=== PATIENT | male | born 1970 | race Caucasian/White ===

== ENCOUNTER → 2018-07-03 | Day surgery (SDC) | payer BC ==
--- NOTE | 2018-07-02 12:05 | Diagnostic Imaging Report ---
EXAMINATION: PA and lateral views of the chest. COMPARISON: None CLINICAL HISTORY: Preoperative exam for carpal tunnel surgery DISCUSSION: Lines/tubes: None. Lungs: The lungs are well inflated and clear. There is no evidence of pneumonia or pulmonary edema. Pleura: There is no pleural effusion or pneumothorax. Heart and mediastinum: The cardiomediastinal silhouette is normal. Bones and soft tissues: No acute bony abnormalities. IMPRESSION: No acute cardiopulmonary abnormalities. Signed by: Dr. Brayden Her M.D. on 07/02/2018 12:02 PM
[~2018-07-03] MED LIST: BUPIVACAINE HCL 0.5% INJ 30 ML VIAL INJ ONE; CEFAZOLIN SOD 1 GM/NS 50ML 50 ML IV ONE; FENTANYL CITRATE/PF 100MCG/2 ML INJ ONE; LIDOCAINE HCL 2% LOCAL INJ 5 ML SDV VIAL INJ ONE; MIDAZOLAM HCL 2 MG/2 ML VIAL ONE; ONDANSETRON HCL INJ 2MG/ML 2ML 2 MG/ML VIAL ONE; PROPOFOL IV EMULSION 10 MG/ML 20 ML VIAL ONE
--- OUTSIDE RECORDS SUMMARY | 2018-07-03 07:51 | XMS REPORT ---
Author [facility] Address Unknown Phone Unavailable Care Team Providers Care Special Education Math Teacher Name Role Phone CARLITOS BOWEN Unavailable Unavailable Problems This patient has no known problems. Allergies, Adverse Reactions, Alerts This patient has no known allergies or adverse reactions. Medications This patient has no known medications. Results Test Description Test Time Test Comments Text Results Atomic Results Result Comments CHEST 2 VIEWS 2018-07-02 12:01:00 [place] [address] Patient Name: ADRIANA LEWIS MR #: [id number] : 1970 Age/Sex: 47/M Req #: [id number] Adm Physician: Ordered by: CARLITOS BOWEN MD Report #: [id number] Location: OR Room/Bed: Procedure: [id number] DX/CHEST 2 VIEWS Exam Date: 07/02/18 Exam Time: 1100 REPORT STATUS: Signed EXAMINATION: PA and lateral views of the chest. COMPAR MELIDA: None CLINICAL HISTORY: Preoperative exam for carpal tunnel surgery DISCUSSION: Lines/tubes: None. Lungs: The lungs are well inflated and clear. There is no evidence of pneumonia or pulmonary edema. Pleura: There is no pleural effusion or pneumothorax. Heart and mediastinum: The cardiomediastinal silhouette is normal. Bones and soft tissues: No acute bony abnormalities. IMPRESSION: No acute cardiopulmonary abnormalities. Signed by: Dr. Carlitos Casarez M.D. on 07/02/2018 12:02 PM Dictated By: CARLITOS CASAREZ MD 01 Transcribed By: SCOTTIE on 07/02/181201 COPY TO: CARLITOS BOWEN MD
[2018-07-03 11:20] VITALS: BP 130/83
--- NOTE | 2018-07-03 15:58 | Operative Report ---
DATE OF PROCEDURE: 07/03/2018 SURGEON: Brayden Coy MD RADIATION PROTECTION TECHNICIAN: Garrick Valdovinos, certified PA. PREOPERATIVE DIAGNOSIS: Bilateral carpal tunnel syndrome. POSTOPERATIVE DIAGNOSIS: Bilateral carpal tunnel syndrome. PROCEDURE: Bilateral endoscopic carpal tunnel release. INDICATIONS: The patient is a 47-year-old gentleman, who has clinic signs and symptoms consistent with bilateral carpal tunnel syndrome. He has failed conservative management and would like to proceed with surgical release. The risks and benefits of an endoscopic versus open carpal tunnel release have been explained. He states he understands and wishes to proceed. PROCEDURE IN DETAIL: The patient was brought to the operating room and given a general anesthetic. Precautions for malignant hyperthermia were taken. Both upper extremities were prepped and draped in a sterile manner. Initial attention was directed towards the right arm. A preoperative time-out was performed. The extremity was exsanguinated and a proximal tourniquet was briefly inflated to 250 mmHg. A transverse incision was made over the flexion crease of the right wrist. The flexor retinaculum was elevated and incised. The proximal retinaculum was incised under direct visualization. An elevator was then used to tease the tenosynovium off the undersurface of the transverse carpal ligament. Dilators were placed and the hook of the hamate was palpated. The MicroAire endoscope was then placed into the carpal tunnel. The undersurface of the transverse carpal ligament was cleanly visualized without evidence of soft tissue interposition. The knife was deployed and the ligament was cut from distal to proximal. A full-thickness cut was noted with palmar fat extruding into the visibility of the scope. The incision was closed with two interrupted nylon stitches. A sterile bandage was applied and the tourniquet was deflated. The same procedure was then performed on the left arm. He was transferred to the recovery room in stable condition. There was no blood loss and all needle and sponge counts were correct. Brayden Coy MD DR/JENNIFER /[id number]
== END | disposition home or self-care (01) ==
LOC: OR 07:45
PROVIDERS: ATTEND Specialist
DX: G56.03 Carpal tunnel syndrome, bilateral upper limbs (principal); Z01.810 Encounter for preprocedural cardiovascular examination; Z01.811 Encounter for preprocedural respiratory examination
CPT/HCPCS: 29848; 71046; 93005; J0690; J2001; J2250; J2405; J2704

== ENCOUNTER → 2019-02-11 | Day surgery (SDC) | payer BC ==
[~2019-02-11] MED LIST changes: +BUPIVACAINE 0.25%/EPI 30ML SDV INJ ONE; -BUPIVACAINE HCL 0.5% INJ 30 ML VIAL INJ ONE; -CEFAZOLIN SOD 1 GM/NS 50ML 50 ML IV ONE; +GLYCOPYRROLATE INJ 1MG/ 5 ML SYR ONE; +HYDROCODONE/APAP 7.5MG-325MG 1 EA TAB ONE; +KETAMINE HCL INJ 50 MG/ML 10 ML VIAL ONE; +KETOROLAC TROMETHAMINE 30 MG/ML VIAL ONE; +LIDOCAINE HCL 1% LOCAL INJ 20 ML VIAL ONE; -LIDOCAINE HCL 2% LOCAL INJ 5 ML SDV VIAL INJ ONE; -MIDAZOLAM HCL 2 MG/2 ML VIAL ONE; +MIDAZOLAM HCL 5MG/ML 2ML VIAL ONE
[2019-02-11 13:20] VITALS: BP 129/87
--- NOTE | 2019-02-11 17:12 | Operative Report ---
DATE OF PROCEDURE: 02/11/2019 SURGEON: Ashvin Richards MD PREOPERATIVE DIAGNOSES: Left inguinal hernia and umbilical hernia. POSTOPERATIVE DIAGNOSES: Left inguinal hernia and umbilical hernia. OPERATIONS PERFORMED: Repair of left inguinal hernia with large Prolene Hernia System and repair of umbilical hernia. ETHNOLOGY TEACHER: GERDA Estrada. ANESTHESIA: General. COMPLICATIONS: None. ESTIMATED BLOOD LOSS: Minimal. DESCRIPTION OF PROCEDURE: With the patient lying in bed in the supine position under good general anesthesia, the abdomen was prepped with Betadine solution and draped in the usual manner. A left inguinal incision was made. It was carried down through the subcutaneous tissue down to the external oblique aponeurosis. External oblique was then opened along the length of its fibers and the external inguinal ring was opened. The cord was then mobilized and retracted. Contained within the cord was a small lipoma of the cord, which was from the cord structures, ligated with 2-0 Vicryl and divided. There was no indirect hernia sac present. There was, however, a bulging hernia in the direct space. The preperitoneal space was then entered right through the internal ring and a pocket was created without any difficulty. A large Prolene Hernia System was then placed in the preperitoneal space and the underlay patch was deployed without any problems. The overlay patch was then placed over the floor and split inferolaterally to allow for passage of the cord. The mesh was then sutured to the conjoined tendon and the inguinal ligament using interrupted sutures of 2-0 Vicryl. The whole area was thoroughly irrigated. Perfect hemostasis was ascertained. All layers were infiltrated on the way out with solution of 0.25% Marcaine and 1% lidocaine mixed in equal parts. The external oblique aponeurosis was then closed with a running suture of 2-0 Vicryl. The subcutaneous tissue was approximated with 3-0 plain and the skin was closed with clips. An incision was then made at the umbilicus in a semicircular fashion, carried down through the subcutaneous tissue down to the fascia. The hernia sac was then encircled with normal fascia all the way around. The umbilicus was then from the hernia sac and there was an incarcerated preperitoneal fat that was there, which was resected. After this was done, another small opening was found just above the umbilicus. The defect was then closed transversely using interrupted sutures of 0 Ethibond. This gave us a satisfactory closure without any tension. The whole area was thoroughly irrigated. Perfect hemostasis was ascertained. The fascia was infiltrated with 0.25% Marcaine. The umbilicus was then tacked back down to the midline fascia with 3-0 Vicryl. The subcutaneous tissue was approximated with 3-0 Vicryl and the skin was closed with interrupted vertical mattress sutures of 3-0 silk. A dressing was applied. The sponge, lap, and needle count was correct. The patient tolerated both procedures well and returned to the recovery room in stable condition. MD BOOKER Shane/JENNIFER /[id number]
== END | disposition home or self-care (01) ==
LOC: OR 06:58
PROVIDERS: ATTEND Surgery
DX: K42.0 Umbilical hernia with obstruction, without gangrene (principal); K40.90 Unilateral inguinal hernia, without obstruction or gangrene, not specified as recurrent; K57.90 Diverticulosis of intestine, part unspecified, without perforation or abscess without bleeding; J45.909 Unspecified asthma, uncomplicated; D17.79 Benign lipomatous neoplasm of other sites
CPT/HCPCS: 49505; 49587; C1781; J1885; J2001; J2250; J2405; J2704; J3010; J3490

== ENCOUNTER → 2020-05-12 | Outpatient (CLI) | payer BC | LOC: RAD 09:42 | PROVIDERS: ATTEND Internal Medicine | DX: R07.9 Chest pain, unspecified (principal) | CPT/HCPCS: 93306 ==